=== PATIENT | female | born 1945 | race Two or more races ===

== ENCOUNTER 2019-09-14 13:17 | Outpatient (CLI) | payer MEDICARE | END 2019-09-14 23:59 | disposition home or self-care (01) | LOC: CFH 13:17 | PROVIDERS: ATTEND Internal Medicine Cardiovascular Disease | DX: I08.0 Rheumatic disorders of both mitral and aortic valves (principal); I10 Essential (primary) hypertension; E78.5 Hyperlipidemia, unspecified | CPT/HCPCS: 93306 ==